=== PATIENT | female | born 1990 | race African-American/Black ===

== ENCOUNTER 2017-11-27 03:24 | Emergency (ER) | payer SELFPAY, OTHER ==
[2017-11-27] MEDS: DEXAMETHASONE 10 MG/ML 1 ML INJ IV (04:30)
[2017-11-27] MEDS: ACETAMINOPHEN 650MG/20.3ML CUP PO (04:30)
[2017-11-27] MEDS: CLINDAMYCIN 600 MG/D5W (PMX) 50 ML IVPB (04:31)
[2017-11-27] MEDS: KETOROLAC 30 MG INJ IV (04:31)
== END 2017-11-27 05:15 | disposition home or self-care (01) ==
LOC: FTE 03:24
DX: J02.9 Acute pharyngitis, unspecified (principal)
CPT/HCPCS: 81025; 96365; 96375; 99284-25